=== PATIENT | male | born 1930 | race Caucasian/White ===

== ENCOUNTER 2017-05-02 10:36 | Emergency (ER) | payer OTHER ==
[2017-05-02 12:50] VITALS: BP 144/78
== END 2017-05-02 12:50 | disposition home or self-care (01) ==
LOC: ED 10:36
DX: S82.64XA Nondisplaced fracture of lateral malleolus of right fibula, initial encounter for closed fracture (principal); S80.812A Abrasion, left lower leg, initial encounter; S80.811A Abrasion, right lower leg, initial encounter; E78.00 Pure hypercholesterolemia, unspecified; I10 Essential (primary) hypertension; E11.9 Type 2 diabetes mellitus without complications; W11.XXXA Fall on and from ladder, initial encounter; Y93.89 Activity, other specified; Y99.8 Other external cause status; Y92.89 Other specified places as the place of occurrence of the external cause
CPT/HCPCS: 90715; J1170; Q0092